=== PATIENT | male | born 1945 | race Hispanic/Latino ===

== ENCOUNTER 2017-01-03 07:05 | Inpatient (IN) | payer OTHER, MEDICARE ==
[2017-01-03] MEDS ORDERED: MORPHINE IV ONE (08:01)
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
[2017-01-03 09:12] LABS: Basophils % (Auto) 0.6 % (0.0-1.8); Eosinophils % (Auto) 3.6 % (0.0-4.3); Hematocrit 36.1 % (35.5-45.6); Hemoglobin 11.9 gm/dl (11.8-15.2); Mean Corpuscular HGB Conc 33 % (32-34); Mean Corpuscular Hemoglobin 31 pg (28-32); Mean Corpuscular Volume 94 fl (84-94); Platelet Count 256 K/mm3 (140-440); Red Blood Count 3.84 M/mm3 (3.65-5.03); Red Cell Distribution Width 14.3 % (13.2-15.2); White Blood Count 12.2 K/mm3 (4.5-11.0)
[2017-01-03 09:28] LABS: Anion Gap 19 mmol/L; BUN/Creatinine Ratio 16.42; Blood Urea Nitrogen 23 mg/dL (9-20); Calcium 8.8 mg/dL (8.4-10.2); Carbon Dioxide 22 mmol/L (22-30); Chloride 91.4 mmol/L (98-107); Creatine Kinase 158 units/L (55-170); Glucose 97 mg/dL (75-100); Potassium 5.5 mmol/L (3.6-5.0); Sodium 127 mmol/L (137-145)
[2017-01-03] MEDS ORDERED: NACL 0.9% 1000 ML 1,000 ML IV ONE ×2 (09:32→12:44)
[2017-01-03] MEDS ORDERED: PROVENTIL IH ONE (09:35)
[2017-01-03] MEDS ORDERED: KIONEX PO ONE (09:35)
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
[2017-01-03 13:16] LABS: Anion Gap 20 mmol/L; BUN/Creatinine Ratio 15.71; Blood Urea Nitrogen 22 mg/dL (9-20); Calcium 8.4 mg/dL (8.4-10.2); Carbon Dioxide 20 mmol/L (22-30); Chloride 92.3 mmol/L (98-107); Glucose 161 mg/dL (75-100); Potassium 4.2 mmol/L (3.6-5.0); Sodium 128 mmol/L (137-145)
--- NOTE | 2017-01-03 14:45 | Cat Scan Report ---
CT HEAD WITHOUT CONTRAST: HISTORY: Ultra mental status. Serial contiguous axial images were obtained through the cranium. Intravenous contrast material was not administered. The ventricles are normal in size and appearance. There is no mass effect or midline shift. No areas of abnormally increased or decreased attenuation are seen. No mass lesion is seen. The mastoid air cells and visualized portions of the sinuses are normal. IMPRESSION: Cranial CT scan within normal limits.
[2017-01-03] MEDS ORDERED: NORCO 5/325 PO ONE (15:14)
--- NOTE | 2017-01-03 16:04 | Admit Criteria Form ---
Admission Criteria Documentation: CARDIOLOGY [facility] Clinical Indications for Admission to Inpatient Care ([place]/check or initial the applicable condition/criteria) Hospital admission is needed for appropriate care of the patient because of ANY ONE of the following: [ ] I. Hemodynamic instability as indicated by ALL of the following (1)(2)(3) (4)(5)(6)(7)(8)(9)(10) [ ]a) Vital sign abnormality not readily corrected by appropriate treatment with 12-24 hours for ANY ONE: [ ]i) Hypotension that persists despite appropriate treatment (eg, volume repletion) [ ]ii) Tachycardiathat persists despite appropriate tx ( e.g., analgesia, fluids, sedation as indicated [ ]iii) Orthostatic vital sign changes that persists despite appropriate treatment (eg, volume repletion) [ ]b) Vital sign abnormailty that is severe indicated by ANY ONE of the following: [ ]i) Inadequate perfusion indicated by ANY ONE of the following: [ ] 1) Lactic acidosis (> 2 mmol/L) [ ] 2) New abnormal capillary refill (> 3 seconds) [ ] 3) Reduced urine output [ ] 4) New altered mental status [ ] 5) Myocardial Ischemia [ ] 6) Other metabolic acidosis (arterial pH <7.35 ) not otherwise explained. [ ]ii) Mean arterial pressure[A] less than 60 mm Hg [ ]iii) Mean arterial pressure[A] less than 70 mm Hg after 30 minutes of appropriate treatment (eg, fluid resuscitation) [ ]iv) Sustained heart rate greater than 120 beats per minute in adult or child 6 years or older[B] [ ]v) IV inotropic or vasopressor medication required to maintain adequate blood pressure or perfusion [ ] II. Severe heart failure as indicated by ANY ONE of the following(17)(18) [ ]a) Respiratory distress [ ]b) Hypotension [ ]c) Debilitating anasarca refractory to therapy (eg, tissue breakdown with infection)[C](19) [ ]d) Cardiac arrhythmias of immediate concern [ ]e) Myocardial ischemia [ ] III. Cardiac arrhythmias or findings of immediate concern indicated by ANY ONE of the following (21)(22): [ ] a) Heart rhythms that are inherently dangerous or unstable indicated by ANY ONE of the following (23)(24)(25): [ ] i) Resuscitated ventricular fibrillation or cardiac arrest [ ] ii) Ventricular escape rhythm [ ] iii) Sustained ventricular tachycardia (30 seconds or more of ventricular rhythm at greater than 100 beats per minute) [ ] iv) Nonsustained ventricular tachycardia and ANY ONE of the following: [ ] 1) Suspected cardiac ischemia as cause or consequence of ventricular tachycardia [ ] 2) Acute myocarditis [ ] b) Unstable cardiac conduction defects indicated by ANY ONE of the following(25)(26)(27) [ ] i) Type II second-degree atrioventricular block [ ]ii) Third-degree atrioventricular block [ ]iii) New-onset left bundle branch block with suspected myocardial ischemia [ ]c) Any heart rhythm and ANY ONE of the following (23)(24)(28)(29) (30) [ ] i) Continuous long-term ECG monitoring needed (e.g., initiation of drug requiring monitoring for more than 24 hours) [ ] ii) Patient has automatic implanted cardioverter defibrillator that is repeatedly firing, malfunctioning, or in need of immediate adjustment of settings beyond the scope of ambulatory or observation care [ ]d) Heart rhythms of concern due to ANY ONE of the following: [ ] i) Hypotension [ ] ii) Respiratory distress [ ] iii) Association with other significant symptoms (e.g., bradycardia with syncope or ongoing dizziness, supraventricular tachycardia with chest pain (28)(29)(31) [ ] IV. Monitoring for cardiac contusion beyond the scope of observation care needed [A](32)(33)(34) [ ] V. Surgical or device complication (e.g., valve replacement complication , ICD disfunction or pacemaker dysfunction) (49)(50)(51)(52)(53)(54) [ ] . Inpatient palliative care needed. [F](51)(52) Also use Inpatient Palliative Care Criteria [ ] VII. Nonbacterial thrombotic (marantic) endocarditis(43)(44)(55)(56)(57) [X] VIII. Cardiology condition, symptom, or finding for which emergency and observation care has failed or are not considered appropriate. [ ] IX. Acute valvular disease requiring inpatient as indicated by ANY ONE of the following (40)(41) [ ]a) Acute valvular regurgitation (42) [ ]b) Noninfectious valvulitis (43)(44) [ ]c) Obstructive valve thrombosis (45)(46) [ ]d) Paravalvular leak(47)(48) [ ]e) Other significant valvular disorder remaining after emergency or observation level of care (as appropriate) [ ]X. Pericardial disease requiring inpatient treatment as indicated by ANY ONE of the following (35)(36)(37)(38) [ ]a) Suspected tamponade [ ]b) Hemopericardium [ ]c) Other significant pericardial disorder remaining after emergency or observation level of care (as appropriate)(39) [ ] XI. Cardiac ischemia beyond scope of emergency and observation care. [ ] XII. Cyanotic heart disease requiring inpatient care as indicated by 1 or more of the following(58)(59)(60): [ ]a) Acute onset of hypoxemia [ ]b) Exacerbation [ ] XIII. Hypertension requiring inpatient treatment as indicated by ANYONE of the following(11)(12)(13)(14): [ ]a) Severe hypertension (SBP greater than 180 mm Hg or DBP greater than 110 mm Hg, or greater than the 95th percentile for age, gender, and height in pediatric patients) that cannot be controlled (eg, to SBP less than 160 mm Hg and DBP less than 100 mm Hg) by emergency department or observation care treatment(15) [ ]b) Acute end organ damage secondary to hypertension (SBP greater than 140 mm Hg or DBP greater than 90 mm Hg) as indicated by ANYONE of the following: [ ] i) Hypertensive encephalopathy (eg, Altered mental status)(16) [ ] ii) Cerebral infarction [ ] iii) Intracranial hemorrhage [ ] iv) Myocardial ischemia or infarction [ ] v) Heart failure (eg, pulmonary edema) [ ] vi) Aortic dissection [ ] vii) Increased creatinine (new) with reduction of more than 50% in estimated glomerular filtration rate from baseline [ ] viii) Papilledema [ ] ix) Retinal hemorrhage [ ] x) Microangiopathic hemolytic anemia [ ] xi) Seizure [ ] xii) Other significant finding secondary to hypertension [ ] XIV. Complications of transplanted heart indicated by ANY ONE of the following(61): [ ]a) Acute graft rejection requiring inpatient management (eg, intravenous imunosuppression)(62)(63) [ ]b) Acute graft heart failure indicated by ANY ONE of the following(64): [ ] i) Hemodynamic instability [ ] ii) Cardiac arrhythmias of immediate concern [ ] iii) Pulmonary edema that is very severe (eg, mechanical ventilation needed, imminent or likely, need for 100% oxygen to keep oxygen saturation above 90%) [ ] iv) Pulmonary edema that is persistent as indicated by ALL of the following: [ ] 1) New need for oxygen therapy to keep oxygen saturation above 90 % (or increased FiO2 need from baseline) [ ] 2) Has not improved sufficiently with emergency department or observation care IV diuretics or other heart failure treatments[E]. [ ] iv) Altered mental status that is severe or persistent [ ] iv) Increased creatinine (new on laboratory test) with reduction of more than 50% in estimated glomerular filtration rate from baseline [ ] iv) Progressively (ongoing) rising creatinine (known from past laboratory test) with reduction of more than 25% in estimated glomerular filtration rate from baseline [ ] iv) Acute renal failure [ ] iv) Acute peripheral ischemia (eg, examination shows pulseless, cool, mottled, or cyanotic extremity) [ ] iv) Pulmonary artery catheter monitoring needed [ ] iv) Other sign or symptom of heart failure requiring inpatient treatment (ie, too severe or not responsive to outpatient and observation care treatment) [ ]c) Infection requiring inpatient management (eg, Hemodynamic instability, need for intravenous antimicrobial treatment)(66)(67)(68)(69)(70) [ ]d) Cardiac allograft vasculopathy requiring inpatient management (eg evidence of cardiacischemia)(71) [ ]e) Other complication of transplanted heart (eg, stroke, severe pulmonary hypertension, severe valvular dysfunction) requiring inpatient management(72) The original [employer] content created by [employer] has been revised. The portions of the content which have been revised are identified through the use of italic text or in bold, and [facility] [employer] has neither reviewed nor approved the modified material. All other unmodified content is copyright [facility] [employer]. Please see references footnoted in the original [facility] edition 2017 Admission Criteria Met: Yes
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
[2017-01-03] MEDS ORDERED: ZOFRAN IV PRN (17:53)
[2017-01-03] MEDS ORDERED: TYLENOL PO PRN (17:53)
[2017-01-03] MEDS ORDERED: MILK OF MAGNESIA PO PRN (17:53)
[2017-01-03] MEDS ORDERED: DILAUDID IV PRN (17:53)
[2017-01-03] MEDS ORDERED: DULCOLAX PR PRN (17:53)
[2017-01-03] MEDS ORDERED: D5NS 1,000 ML IV SCH (18:00)
[2017-01-03] MEDS ORDERED: NACL 0.9% 1000 ML 1,000 ML IV SCH (18:00)
[2017-01-03] MEDS ORDERED: NON-FORMULARY (Esomeprazole Magnesium [Nexium] 20 MG) PO SCH (18:15)
[2017-01-03] MEDS: ZESTRIL PO SCH (18:34)
[2017-01-03 19:00] LABS: Creatine Kinase MB 9.4 ng/mL (0.0-4.0)
[2017-01-03 19:01] LABS: Carbon Dioxide 22 mmol/L (22-30); Creatine Kinase 325 units/L (55-170)
[2017-01-03 19:02] LABS: Anion Gap 20 mmol/L; Potassium 4.9 mmol/L (3.6-5.0); Sodium 132 mmol/L (137-145)
[2017-01-03] MEDS: ELIQUIS PO SCH (21:13)
[2017-01-03] MEDS: PEPCID IV SCH (21:13)
[2017-01-03] MEDS: HEPARIN SUB-Q SCH (21:13)
[2017-01-03] MEDS ORDERED: ZOCOR PO SCH (22:00)
[2017-01-03] MEDS ORDERED: NORCO 5/325 PO PRN (22:33)
[2017-01-04 02:04] LABS: Creatine Kinase MB 8.8 ng/mL (0.0-4.0)
[2017-01-04 02:05] LABS: Creatine Kinase 398 units/L (55-170)
[2017-01-04 02:19] LABS: Basophils % (Auto) 0.1 % (0.0-1.8); Eosinophils % (Auto) 1.1 % (0.0-4.3); Hematocrit 30.3 % (35.5-45.6); Hemoglobin 10.4 gm/dl (11.8-15.2); Mean Corpuscular HGB Conc 34 % (32-34); Mean Corpuscular Hemoglobin 32 pg (28-32); Mean Corpuscular Volume 93 fl (84-94); Platelet Count 205 K/mm3 (140-440); Red Blood Count 3.28 M/mm3 (3.65-5.03); Red Cell Distribution Width 14.5 % (13.2-15.2); White Blood Count 7.7 K/mm3 (4.5-11.0)
[2017-01-04 02:40] LABS: Alanine Aminotransferase 13 units/L (7-56); Albumin 3.3 g/dL (3.9-5); Albumin/Globulin Ratio 1.3 %; Alkaline Phosphatase 67 units/L (35-129); BUN/Creatinine Ratio 14.54; Blood Urea Nitrogen 16 mg/dL (9-20); Calcium 8.4 mg/dL (8.4-10.2); Carbon Dioxide 23 mmol/L (22-30); Glucose 118 mg/dL (75-100); Total Protein 5.9 g/dL (6.3-8.2)
[2017-01-04 02:41] LABS: Anion Gap 19 mmol/L; Chloride 97.2 mmol/L (98-107); Potassium 4.7 mmol/L (3.6-5.0); Sodium 134 mmol/L (137-145)
[2017-01-04] MEDS: NORCO 5/325 PO PRN ×2 (04:41→11:26)
[2017-01-04] MEDS: HEPARIN SUB-Q SCH (05:43)
[2017-01-04 07:13] LABS: Creatine Kinase MB 7.6 ng/mL (0.0-4.0)
[2017-01-04 07:17] LABS: Creatine Kinase 419 units/L (55-170)
[2017-01-04] MEDS ORDERED: LEXISCAN IV ONE ×2 (08:43→08:49)
[2017-01-04] MEDS ORDERED: LOPRESSOR PO SCH (10:00)
[2017-01-04] MEDS ORDERED: PROTONIX PO SCH (10:00)
[2017-01-04] MEDS: PEPCID IV SCH (11:28)
[2017-01-04] MEDS: ZESTRIL PO SCH (11:30)
[2017-01-04] MEDS: ELIQUIS PO SCH (11:31)
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
[2017-01-04 14:59] VITALS: BP 156/66
--- NOTE | 2017-01-05 00:44 | Treadmill Report ---
INDICATION FOR THE PROCEDURE: Chest pain. ORDERING PHYSICIAN: Chiqui Messina MD FINDINGS: There is no scintigraphic evidence of myocardial ischemia. There is evidence of a moderate sized fixed inferior wall defect due to increased uptake in the adjacent bowel/liver. Left ventricular ejection fraction is measured at 50% with normal wall motion and wall thickening. CONCLUSION: 1. No scintigraphic evidence of myocardial ischemia. 2. Moderate-sized fixed inferior wall defect due to the adjacent bowel uptake. 3. Normal left ventricular size and systolic function. JOB# [id number] CYNDI/WU
== END 2017-01-04 16:12 | disposition home or self-care (01) | DRG 313 ==
LOC: ED 07:05 → 4A 15:21
PROVIDERS: ADMIT Internal Medicine; ATTEND Internal Medicine
DX: R07.89 Other chest pain (principal); E87.1 Hypo-osmolality and hyponatremia; I25.10 Atherosclerotic heart disease of native coronary artery without angina pectoris; I48.91 Unspecified atrial fibrillation; I11.0 Hypertensive heart disease with heart failure; I50.9 Heart failure, unspecified; J44.9 Chronic obstructive pulmonary disease, unspecified; K21.9 Gastro-esophageal reflux disease without esophagitis; M19.90 Unspecified osteoarthritis, unspecified site; E87.5 Hyperkalemia; Z95.5 Presence of coronary angioplasty implant and graft; V87.7XXA Person injured in collision between other specified motor vehicles (traffic), initial encounter; Y93.89 Activity, other specified; Y92.89 Other specified places as the place of occurrence of the external cause; Y99.8 Other external cause status; Z72.89 Other problems related to lifestyle; Z79.82 Long term (current) use of aspirin; Z79.899 Other long term (current) drug therapy; Z82.49 Family history of ischemic heart disease and other diseases of the circulatory system
CPT/HCPCS: 36415; 70450; 71020; 71250; 78452; 80048; 80051; 80053; 82550; 82553; 83036; 83930; 83935; 84484; 85025; 93005; 93010; 93017; 94640; 96374; A9502; J1644; J2270; J2785; J7030; J7042

== ENCOUNTER 2017-03-28 13:31 | Outpatient (CLI) | payer MEDICARE ==
--- NOTE | 2017-03-28 14:19 | XRay Report ---
XRAY CHEST TWO VIEWS: 03/28/17 13:31:00 CLINICAL: Cough.Bronchitis. COMPARISON: 01/03/17 FINDINGS: Normal heart and pulmonary vasculature. The lungs are normally expanded and clear.The bones and soft tissues are unremarkable. IMPRESSION: No acute cardiopulmonary process.No change since prior exam.
== END 2017-03-28 13:32 | disposition home or self-care (01) ==
LOC: SPVIMAG 13:31
PROVIDERS: ATTEND Internal Medicine
DX: J40 Bronchitis, not specified as acute or chronic (principal)
CPT/HCPCS: 71020

== ENCOUNTER 2017-05-09 10:31 | Outpatient (CLI) | payer MEDICARE ==
--- NOTE | 2017-05-09 11:17 | XRay Report ---
LEFT FOOT: The bony architecture is intact. Bony alignment is normal. No soft tissue abnormalities are seen. The joint spaces appear preserved. IMPRESSION: Normal left foot.
== END 2017-05-09 10:32 | disposition home or self-care (01) ==
LOC: SPVIMAG 10:31
PROVIDERS: ATTEND Orthopaedic Surgery Sports Medicine
DX: M79.672 Pain in left foot (principal); I11.0 Hypertensive heart disease with heart failure; I50.9 Heart failure, unspecified; J44.9 Chronic obstructive pulmonary disease, unspecified